=== PATIENT | female | born 1990 ===

== ENCOUNTER 2018-08-20 19:30 | Emergency (ER) | payer OTHER ==
[~2018-08-20] VITALS: Ht 185.4 cm; Wt 110.2 kg
--- NOTE | 2018-08-20 20:05 | NUR ---
BIB SELF. TO ER BED 3. AAOX4. AMBULATORY. NAD. DENIES CP. NO SOB, BREATHING EVEN AND UNLABORED. DENIES OF FEVER. C/O R SHOLUDER PAIN WHIXH STARTED 5 YR AGO BUT GOT WORST IN THE PAST 4 DAY, LIMITED ROM NOTED. DENIES PAIN AT THIS MOMENT. PT ALSO COMPLAINS OF CHRONIC BACK PAIN FOR AWHILE ALREADY. PT WOULD ALSO LIKE TO BE CHECKED FOR ANY INFECTION, NO SPECIFIC SYMPTOMS REPORTED [place] PT. AWAITING MD MCADAMS.
[2018-08-20 20:11] VITALS: BP 150/88
[2018-08-20] MEDS ORDERED: KETOROLAC TROMETHAMINE INJ 60 MG/2 ML VIAL IM ONE ×2 (20:30→20:44)
--- NOTE | 2018-08-20 20:42 | NUR ---
XRAY AT BEDSIDE.
--- NOTE | 2018-08-20 20:42 | NUR ---
WAIVER OBTAIND FROM PT. DENIES OF BEING . PT IS ON HER MENTRUAL PERIOD AT THIS TIME.
--- NOTE | 2018-08-20 21:50 | NUR ---
pt left with receiving after care instruction. Addendum: 08/20/18 at 2155 by ABELO Pt in stable condition. ambulatory. nad. aaox4.
== END 2018-08-20 21:50 | disposition home or self-care (01) ==
LOC: ER 19:31
DX: G89.29 Other chronic pain (principal); M25.511 Pain in right shoulder; I10 Essential (primary) hypertension; F17.210 Nicotine dependence, cigarettes, uncomplicated; Z60.2 Problems related to living alone
CPT/HCPCS: 73030; 84703; 96372; 99284; J1885